=== PATIENT | female | born 1980 | race African-American/Black ===

== ENCOUNTER 2018-01-17 14:43 | Emergency (ER) | payer SELFPAY ==
[~2018-01-17] VITALS: Ht 167.6 cm; Wt 78.2 kg
[~2018-01-17 14:43] MED LIST: ATARAX 25MG25 MG/TAB PO; BACTRIM DS 8001 TAB PO; CEPHALEXIN500 M1 PO; CYMBALTA 60MG60 MG PO; DESYREL 100MG100 MG PO; DESYREL DIVIDO150 M1 PO; LORTAB 5/500 501 TAB PO; MEDROL 4MG DOSPA4 MG PO; NIX CREME RINSE60 M1 TP; NORCO 325 MG-51 TAB PO; PHENERGAN 25 TA25 MG PO; REMERON30 MG PO; ULTRAM 50MG TAB50 MG PO; XANAX .25M0.25 MG/TA PO; XANAX 1MG1 MG PO; XANAX2 MG PO; ZANTAC 7575 MG PO; ZOFRAN 4MG T4 MG/TAB PO
[2018-01-17] MEDS ORDERED: NORCO 325 MG-51 TAB PO (15:39)
[2018-01-17 15:41] VITALS: BP 133/94; PULSE 92; TEMP 98.4
== END 2018-01-17 15:42 | disposition home or self-care (01) ==
LOC: COL.ER 14:43
DX: M79.671 Pain in right foot (principal); M54.30 Sciatica, unspecified side

== ENCOUNTER 2019-12-31 18:15 | Emergency (ER) | payer SELFPAY ==
[~2019-12-31] VITALS: Ht 167.6 cm; Wt 70.5 kg
[2019-12-31 18:20] VITALS: BP 139/84; TEMP 96.9
[2019-12-31] MEDS ORDERED: NEURONTIN300 MG/CAP PO (18:35)
[2019-12-31 18:45] VITALS: PULSE 109
== END 2019-12-31 18:44 | disposition home or self-care (01) ==
LOC: COL.ER 18:15
DX: R55 Syncope and collapse (principal); F17.210 Nicotine dependence, cigarettes, uncomplicated

== ENCOUNTER 2022-04-03 20:50 | Emergency (ER) | payer SELFPAY ==
[~2022-04-03] VITALS: Ht 167.6 cm; Wt 70.5 kg
[~2022-04-03 20:50] MED LIST changes: +NEURONTIN300 MG/CAP PO
[2022-04-03 20:55] VITALS: TEMP 97.1
[2022-04-03 21:16] LABS: BASO # 0.1 K/mm3 (0.0-0.2); BASO % 0.6 % (0.0-2.0); EOS # 0.2 K/mm3 (0.0-0.7); EOS % 2.1 % (0.0-4.0); GRAN # 4.4 K/mm3 (1.4-6.5); GRAN % 51.2 % (42.2-75.2); LYMPH # 3.2 K/mm3 (1.2-3.4); LYMPH % 37.4 % (20.0-51.0); MEAN CELL VOLUME 82 fl (80.0-100.0); MEAN CORPUSCULAR HGB CONC 33 g/dl (33.0-37.0); MEAN PLATELET VOLUME 9.4 fl (7.4-10.4); MONO # 0.7 K/mm3 (0.1-0.6); MONO % 8.3 % (1.7-9.3); PLATELET COUNT 319 K/mm3 (130-400); RED BLOOD COUNT 3.62 M/mm3 (4.10-5.30); REDCELL DISTRIBUTION WIDTH-CV 14.2 % (11.5-14.5)
[2022-04-03 21:17] LABS: HEMATOCRIT 29.8 % (37.0-47.0); HEMOGLOBIN 9.8 g/dl (12.5-16.0); MEAN CORPUSCULAR HEMOGLOBIN 27 pg (27-31)
[2022-04-03 21:26] LABS: PARTIAL THROMBOPLASTIN TIME 29.7 SECONDS (26.0-37.0)
[2022-04-03 21:27] LABS: ALANINE AMINOTRANSFERASE 31 U/L (0-55); ALBUMIN 3.4 gm/dL (3.5-5.0); ALKALINE PHOSPHATASE 66 U/L (40-150); ANION GAP 12 mmol/L (7-16); AST,SGOT 20 U/L (5-34); BILIRUBIN,TOTAL 0.2 mg/dL (0.2-1.2); BLOOD UREA NITROGEN 13 mg/dL (7-19); CARBON DIOXIDE 19 mmol/L (22-29); CHLORIDE 108 mmol/L (98-107); GLUCOSE 107 mg/dL (70-99); POTASSIUM 4.1 mmol/L (3.5-4.5); SODIUM 139 mmol/L (136-145); TOTAL PROTEIN 6.8 gm/dL (6.2-8.1)
[2022-04-03 21:31] LABS: ALCOHOL(ethanol),MEDICAL < 10 mg/dL (0-10)
[2022-04-03 23:09] VITALS: BP 131/92; PULSE 98
== END 2022-04-03 23:14 | disposition short-term general hospital (02) ==
LOC: COL.ER 20:50
PROVIDERS: Emergency Medicine
DX: S61.254A Open bite of right ring finger without damage to nail, initial encounter (principal); S81.852A Open bite, left lower leg, initial encounter; W54.0XXA Bitten by dog, initial encounter
CPT/HCPCS: J0690; J3010; J7030; Q9967

== ENCOUNTER 2022-05-13 00:58 | Inpatient (IN) | payer SELFPAY ==
[2022-05-13] VITALS (12 sets, daily range): BP systolic 126–151; BP diastolic 87–109; PULSE 84–100; TEMP 97.7–98.8
[~2022-05-13] VITALS: Ht 167.6 cm; Wt 65.9 kg
[2022-05-13 02:05] LABS: BASO # 0.1 K/mm3 (0.0-0.2); BASO % 0.7 % (0.0-2.0); EOS # 0.2 K/mm3 (0.0-0.7); EOS % 2.5 % (0.0-4.0); GRAN # 5.6 K/mm3 (1.4-6.5); GRAN % 68.2 % (42.2-75.2); LYMPH # 1.6 K/mm3 (1.2-3.4); LYMPH % 19.7 % (20.0-51.0); MEAN CELL VOLUME 81 fl (80.0-100.0); MEAN CORPUSCULAR HEMOGLOBIN 26 pg (27-31); MEAN CORPUSCULAR HGB CONC 32 g/dl (33.0-37.0); MEAN PLATELET VOLUME 9.2 fl (7.4-10.4); MONO # 0.7 K/mm3 (0.1-0.6); MONO % 8.7 % (1.7-9.3); PLATELET COUNT 313 K/mm3 (130-400); RED BLOOD COUNT 3.92 M/mm3 (4.10-5.30)
[2022-05-13 02:06] LABS: HEMATOCRIT 31.7 % (37.0-47.0)
[2022-05-13 02:25] LABS: ALBUMIN 3.1 gm/dL (3.5-5.0); BILIRUBIN,TOTAL 0.2 mg/dL (0.2-1.2); C-REACTIVE PROTEIN 0.31 mg/dL (0.00-0.50); CALCIUM 8.4 mg/dL (8.4-10.2); CREATININE, serum 0.76 mg/dL (0.57-1.11); POTASSIUM 4.2 mmol/L (3.5-4.5); TOTAL PROTEIN 6.6 gm/dL (6.2-8.1)
--- NOTE | 2022-05-13 03:45 | NUR ---
PT BROUGHT UP FROM ED
--- NOTE | 2022-05-13 03:54 | NUR ---
Vancomycin Initial Dosing Pharmacy Note Ordering provider: Wally Osman MD Indication/duration: Cellulitis x 7 days Relevant comorbidities: N/A LABS: WBC = 8.1, SCr = 0.76 Recommendation: Will draw troughs and follow levels. Loading dose: 1.25 grams Maintenance dose: 1 gram every 12 hours Trough goal: 10-15 ug/mL
--- NOTE | 2022-05-13 05:45 | NUR ---
Pt alert and oriented. Follows commands. Reports pain in the left calf. Reports it is painful to bare weight or move the LLE. LLE has 2 wound sites and there is another wound site on the right hip. The LLE has a wound on the posterior portion of the calf and on the anterior portion of the calf. The anterior wound in medium sized, open and scabbed, red, warm, and has stiches present. The posterior wound is large, has drainage, malodorous, warm, red, painful to touch. Drainage out of the posterior left calf wound is yellow. Wound has uneven edges on the LLE. The bite on the right hip is scabbed and closed, but edematous. Pt reports less pain at the right hip and is able to bare more weight on the right side. Pt was up to void x1 with the cane and appeared to be in a lot of pain. Prn morphine administered x1 for pain with relief. IV fluids began and IV antibx administered per orders. Pt is NPO. Swabbed posterior LLE wound for wound culture and sent to lab. Spoke with provider about wrapping the LLE wound. Wound is currently wrapped with a non-adherent pad and gauze wrap lightly wrapped around the 2 LLE sites. Admission intake and admission assessments completed. Med rx reviewed. Pt states she takes no medications at home. Allergies confirmed. Pt denies any allergies. COVID and infectious disease assessments completed. VS stable. BP running elevated. HR WNL. Afebrile. Pt denies having fevers at home. Pt denies SOB/dizziness. Lung sounds are clear bilaterally. 2+ edema noted in the LLE with 2+ pedal pulses bilaterally. Pt currently resting and does not report any questions at this time, will continue to monitor.
[2022-05-13 07:40] LABS: BASO # 0.1 K/mm3 (0.0-0.2); BASO % 0.9 % (0.0-2.0); EOS # 0.2 K/mm3 (0.0-0.7); EOS % 2.4 % (0.0-4.0); GRAN # 5.2 K/mm3 (1.4-6.5); GRAN % 68.8 % (42.2-75.2); LYMPH # 1.5 K/mm3 (1.2-3.4); LYMPH % 20.2 % (20.0-51.0); MEAN CELL VOLUME 82 fl (80.0-100.0); MEAN CORPUSCULAR HGB CONC 31 g/dl (33.0-37.0); MEAN PLATELET VOLUME 9.3 fl (7.4-10.4); MONO # 0.6 K/mm3 (0.1-0.6); MONO % 7.4 % (1.7-9.3); PLATELET COUNT 281 K/mm3 (130-400); RED BLOOD COUNT 3.66 M/mm3 (4.10-5.30)
[2022-05-13 07:42] LABS: HEMOGLOBIN 9.2 g/dl (12.5-16.0); MEAN CORPUSCULAR HEMOGLOBIN 25 pg (27-31)
[2022-05-13 07:53] LABS: CALCIUM 7.9 mg/dL (8.4-10.2); CREATININE, serum 0.7 mg/dL (0.57-1.11); POTASSIUM 4.3 mmol/L (3.5-4.5)
--- NOTE | 2022-05-13 13:07 | NUR ---
cattle alley worker met with patient at bedside to complete intake and discuss discharge plan. Patient reports that she lives at home alone in [facility]. She is independent with her ADL's. Patient has a cane at bedside which she states she has been using since the dog bite. Patient does not currently have a PCP. She utilizes [facility] for prescription needs and has trouble affording them. Patient's emergency contact is listed as her mother Dov ([phone]). She is not legally but has two adult children. She gives me her daughters name: January Troy ([phone]). Patient is planning on returning home once medically ready. Discharge plan: Home
--- NOTE | 2022-05-13 18:14 | NUR ---
PATIENTS LLE WOUND DRAINING EXCESSIVLY. REINFORCED TWICE, DRAINAGE WENRT THROUGH ALL GAUZE AND LEG WRAP TWICE. DR NOTIFIED, NO NEW ORDERS GIVEN.
[2022-05-14] VITALS (7 sets, daily range): BP systolic 121–142; BP diastolic 73–96; PULSE 90–104; TEMP 97.6–98.8
--- NOTE | 2022-05-14 01:44 | NUR ---
Pt alert and oriented, resting, follows commands. Pt reporting pain in the left calf, but states it has improved since getting the wounds debrided on the left side. Prn morphine and prn roxicodone administered x1 so far for pain with relief. Pt currently has gauze dressing applied to the debridement sites. Nursing intervention placed by provider to re-enforce dressing. Dressing was re-enfored d/t saturation of the dressing. New gauze wrapped applied, but dressing placed by provider left in place. Drainage is red and heavy. Will continue to re-enforce per orders. 2 dog bite wounds noted on the LLE, one on the left calf and the other on the left angulo. Pt reports a third dog bite on the right hip that is edematous, but not open/red/or painful. Shift assessment performed. Medications administered per orders and education provided. VS stable. Afebrile. On room air. Pt able to ambulate better to the BR with less pain. Utilizes a cane. Pt does not report any questions at this time, will continue to monitor.
--- NOTE | 2022-05-14 05:50 | NUR ---
No adverse events overnight. Re-enforced pt's dressing again this morning d/t drainage saturating the dressing. Re-enforced with a new abd pad and fresh gauze wrap on the outside. Prn morphine and prn roxicodone administered x1 overnight, pt did not want pain medication this morning. IV fluids and IV antibx continue per orders. VS stable. Pt afebrile. Satting WNL on room air. Pt does not report any questions at this time, will continue to monitor.
[2022-05-14 13:26] LABS: MEAN CELL VOLUME 81 fl (80.0-100.0); MEAN CORPUSCULAR HGB CONC 32 g/dl (33.0-37.0); MEAN PLATELET VOLUME 9.4 fl (7.4-10.4); PLATELET COUNT 310 K/mm3 (130-400); RED BLOOD COUNT 3.61 M/mm3 (4.10-5.30); REDCELL DISTRIBUTION WIDTH-CV 13.9 % (11.5-14.5)
[2022-05-14 13:27] LABS: HEMATOCRIT 29.1 % (37.0-47.0); HEMOGLOBIN 9.2 g/dl (12.5-16.0); MEAN CORPUSCULAR HEMOGLOBIN 25 pg (27-31)
[2022-05-14 13:39] LABS: CALCIUM 8.2 mg/dL (8.4-10.2); CREATININE, serum 0.79 mg/dL (0.57-1.11); POTASSIUM 3.8 mmol/L (3.5-4.5)
[2022-05-15] VITALS (13 sets, daily range): BP systolic 112–153; BP diastolic 78–102; PULSE 75–109; TEMP 97.5–98.1
--- NOTE | 2022-05-15 06:28 | NUR ---
pain meds requested x1 this shift @0300, pt up ad denzel in room, left leg elevated on pillows while in bed, no new drainage noted on dressing this shift. pt to have clear liquid breakfast and then NPO for procedure, IVF infusing per PIV @75cc/hr.
[2022-05-15 07:00] LABS: BASO # 0.1 K/mm3 (0.0-0.2); BASO % 0.7 % (0.0-2.0); EOS # 0.2 K/mm3 (0.0-0.7); EOS % 2.6 % (0.0-4.0); GRAN # 4.4 K/mm3 (1.4-6.5); GRAN % 57.1 % (42.2-75.2); LYMPH # 2.4 K/mm3 (1.2-3.4); LYMPH % 31.7 % (20.0-51.0); MEAN CELL VOLUME 81 fl (80.0-100.0); MEAN CORPUSCULAR HGB CONC 31 g/dl (33.0-37.0); MEAN PLATELET VOLUME 9.3 fl (7.4-10.4); MONO # 0.6 K/mm3 (0.1-0.6); MONO % 7.5 % (1.7-9.3); PLATELET COUNT 307 K/mm3 (130-400); RED BLOOD COUNT 3.66 M/mm3 (4.10-5.30); REDCELL DISTRIBUTION WIDTH-CV 14.1 % (11.5-14.5)
[2022-05-15 07:02] LABS: HEMATOCRIT 29.8 % (37.0-47.0); HEMOGLOBIN 9.3 g/dl (12.5-16.0); MEAN CORPUSCULAR HEMOGLOBIN 25 pg (27-31)
[2022-05-15 07:15] LABS: ALBUMIN 2.4 gm/dL (3.5-5.0); CALCIUM 8.1 mg/dL (8.4-10.2); CREATININE, serum 0.68 mg/dL (0.57-1.11); MAGNESIUM 1.7 mg/dL (1.6-2.6); PHOSPHOROUS 3.3 mg/dL (2.3-4.7); POTASSIUM 3.8 mmol/L (3.5-4.5)
--- NOTE | 2022-05-15 15:08 | NUR ---
Vancomycin Follow-up Pharmacy Note Current regimen: VANCOMYCIN 1 G Q12H Vancomycin trough: 8.4 Adjustments: INCREASE TO VANCOMYCIN 1.25 G Q12H
[2022-05-16 04:33] VITALS: BP 135/91; PULSE 87; TEMP 98
[2022-05-16 08:11] VITALS: BP 131/87; PULSE 83; TEMP 98.1
[2022-05-16 11:06] VITALS: BP 142/89; PULSE 83; TEMP 98.4
--- NOTE | 2022-05-16 13:09 | NUR ---
electronic instrument trades worker notified that the patient us going to need post acute wound care. SW attempted to reach out the [facility] x2 to see if they would be able to take this patient even if she is self pay. No return phone call from nurse yet. SW informed by manager community development that the patient is getting set up to follow up with at his office and they can do the wound care there. Discharge plan: Home
--- NOTE | 2022-05-16 13:38 | NUR ---
Initial visit; Patient thanked Fuel Verification Technician for stopping by and offering empathy and to keep her in Fuel Verification Technician's prayers. Fuel Verification Technician will keep Hussein in her prayers.
[2022-05-16 15:27] VITALS: BP 153/99; PULSE 84; TEMP 97.9
[2022-05-16 20:15] VITALS: BP 144/94; PULSE 113; TEMP 98
[2022-05-16 23:52] VITALS: BP 138/96; PULSE 87; TEMP 97.5
[2022-05-17 07:12] VITALS: BP 142/96; PULSE 99; TEMP 98.3
--- NOTE | 2022-05-17 08:38 | NUR ---
PATIENT ALERT AND ORIENTED. C/O 7 OF 10. SECOND DOSE OF OXYCODONE 5MG GIVEN. PATIENT STATES SMALL BOWEL MOVEMENT ON 05/16. PASSING FLATUS. NO DIFFICULTY BREATHING. UP AD JU IN ROOM. APPETITE APPROPRIATE. PATIENT STATES SHE IS READY TO GO HOME. INQUIRING ABOUT POSSIBLE DISCHARGE AND TIMING. PATIENT RESTING IN BED DURING ASSESSMENT. ALL OTHER SKIN WARM, DRY AND INTACT. DRESSING ON LLE, CDI. DRESSING NOT REMOVED AT THIS TIME FOR VISUALIZTAION.
[2022-05-17] MEDS ORDERED: ADVIL LIQUI-GE200 MG PO (09:14)
[2022-05-17] MEDS ORDERED: NORCO 325 MG-51 TAB PO (09:15)
[2022-05-17] MEDS ORDERED: DOXYCYCLINE 10100 MG PO ×3 (11:16→11:22)
[2022-05-17] MEDS ORDERED: CEFTIN500 MG PO ×3 (11:16→11:22)
--- NOTE | 2022-05-17 12:50 | NUR ---
drug department worker scheduled patient a follow up appointment at [facility] in for hospital follow up. Appointment made for 05/25 at 0840. inventory control clerk notified.
--- NOTE | 2022-05-17 14:05 | NUR ---
PATIENT DISCHARGE INSTRUCTIONS REVIEWED AND GIVEN. PATIENT IV DISCONTINUED.
== END 2022-05-17 14:05 | disposition home or self-care (01) | DRG 571 ==
LOC: COL.ER 00:58 → MEDICAL 02:53
PROVIDERS: Internal Medicine; Nurse Practitioner; Student in an Organized Health Care Education/Training Program; Surgery; ADMIT Student in an Organized Health Care Education/Training Program
PROC: 0JBP0ZZ Excision of Left Lower Leg Subcutaneous Tissue and Fascia, Open Approach (ICD-10-PCS; 2022-05-13)
PROC: 2W0 Placement, Anatomical Regions, Change (ICD-10-PCS; 2022-05-15)
PROC: 0JBP0ZZ Excision of Left Lower Leg Subcutaneous Tissue and Fascia, Open Approach (ICD-10-PCS; principal; 2022-05-15 13:15)
DX: S81.852A Open bite, left lower leg, initial encounter (principal); I96 Gangrene, not elsewhere classified; L03.116 Cellulitis of left lower limb; B19.20 Unspecified viral hepatitis C without hepatic coma; F17.210 Nicotine dependence, cigarettes, uncomplicated; F15.10 Other stimulant abuse, uncomplicated; F12.10 Cannabis abuse, uncomplicated; F43.10 Post-traumatic stress disorder, unspecified; D72.829 Elevated white blood cell count, unspecified; B96.20 Unspecified Escherichia coli [E. coli] as the cause of diseases classified elsewhere; B95.62 Methicillin resistant Staphylococcus aureus infection as the cause of diseases classified elsewhere; B95.1 Streptococcus, group B, as the cause of diseases classified elsewhere; Z72.89 Other problems related to lifestyle; Z87.440 Personal history of urinary (tract) infections; W54.0XXA Bitten by dog, initial encounter; Y93.89 Activity, other specified; Y92.89 Other specified places as the place of occurrence of the external cause
CPT/HCPCS: 99223-AI; 99232-AI; 99233-AI; 99239; J0360; J0690; J1100; J1170; J2185; J2270; J2370; J2405; J2543; J2704; J3010; J3370; J7030; J7050; Q9967

== ENCOUNTER 2022-09-15 08:04 | Emergency (ER) | payer SELFPAY ==
[~2022-09-15] VITALS: Ht 167.6 cm; Wt 65.9 kg
[~2022-09-15 08:04] MED LIST changes: +ADVIL LIQUI-GE200 MG PO; +CEFTIN500 MG PO; +DOXYCYCLINE 10100 MG PO
[2022-09-15 09:01] LABS: BASO # 0.1 K/mm3 (0.0-0.2); BASO % 0.4 % (0.0-2.0); EOS # 0.1 K/mm3 (0.0-0.7); EOS % 0.7 % (0.0-4.0); GRAN # 13.2 K/mm3 (1.4-6.5); GRAN % 82.9 % (42.2-75.2); HEMATOCRIT 31.7 % (37.0-47.0); HEMOGLOBIN 10.2 g/dl (12.5-16.0); LYMPH # 1.6 K/mm3 (1.2-3.4); LYMPH % 10.2 % (20.0-51.0); MEAN CELL VOLUME 77 fl (80.0-100.0); MEAN CORPUSCULAR HEMOGLOBIN 25 pg (27-31); MEAN CORPUSCULAR HGB CONC 32 g/dl (33.0-37.0); MEAN PLATELET VOLUME 9.2 fl (7.4-10.4); MONO # 0.8 K/mm3 (0.1-0.6); MONO % 5.2 % (1.7-9.3); PLATELET COUNT 293 K/mm3 (130-400); RED BLOOD COUNT 4.12 M/mm3 (4.10-5.30); REDCELL DISTRIBUTION WIDTH-CV 16.4 % (11.5-14.5)
[2022-09-15 09:19] LABS: ALANINE AMINOTRANSFERASE 21 U/L (0-55); ALBUMIN 3.3 gm/dL (3.5-5.0); ALKALINE PHOSPHATASE 78 U/L (40-150); ANION GAP 7 mmol/L (7-16); AST,SGOT 18 U/L (5-34); BILIRUBIN,TOTAL 0.5 mg/dL (0.2-1.2); BLOOD UREA NITROGEN 11 mg/dL (7-19); CALCIUM 8.7 mg/dL (8.4-10.2); CARBON DIOXIDE 23 mmol/L (22-29); CHLORIDE 105 mmol/L (98-107); CREATININE, serum 0.76 mg/dL (0.57-1.11); GLUCOSE 94 mg/dL (70-99); LIPASE 26 U/L (8-78); POTASSIUM 3.9 mmol/L (3.5-4.5); SODIUM 135 mmol/L (136-145); TOTAL PROTEIN 6.6 gm/dL (6.2-8.1)
[2022-09-15 09:28] LABS: TROPONIN-I < 0.010 ng/mL (0.00-0.033)
[2022-09-15 11:24] LABS: COLLECTION METHOD CLEAN CATCH
[2022-09-15 11:34] LABS: MUCOUS Present (NOT PRESENT); PH 8.5 (5.0-8.5); URINE APPEARANCE Clear (CLEAR/HAZY); URINE BACTERIA None Seen /hpf (NONE SEEN); URINE BLOOD 2+ (NEGATIVE); URINE COLOR Yellow (YELLOW); URINE GLUCOSE Negative (NEGATIVE); URINE KETONE Negative (NEGATIVE); URINE NITRATE Negative (NEGATIVE); URINE PROTEIN(semi-quant) Negative (NEGATIVE); URINE WBC 20-50 /hpf (0-2)
[2022-09-15] MEDS ORDERED: ROXICODONE 55 MG/TAB PO (13:52)
[2022-09-15] MEDS ORDERED: DOXYCYCLINE HY100 MG PO (13:52)
[2022-09-15] MEDS ORDERED: FLAGYL500 MG PO (13:52)
[2022-09-15 14:40] VITALS: BP 124/98; PULSE 102; TEMP 98.7
== END 2022-09-15 14:45 | disposition home or self-care (01) ==
LOC: COL.ER 08:04
PROVIDERS: Emergency Medicine
DX: A54.24 Gonococcal female pelvic inflammatory disease (principal); F17.200 Nicotine dependence, unspecified, uncomplicated; Z32.02 Encounter for pregnancy test, result negative
CPT/HCPCS: J0696; J2270; J2405; J7120; Q9967